=== PATIENT | female | born 1980 | race Hispanic/Latino ===

== ENCOUNTER 2018-11-06 04:23 | Emergency (ER) | payer SELFPAY ==
[2018-11-06] MEDS ORDERED: TYLENOL PO ONE (06:18)
[2018-11-06] MEDS ORDERED: NORMODYNE IV ONE (06:18)
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
[2018-11-06 07:37] VITALS: BP 160/93
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
[2018-11-06] MEDS ORDERED: TORADOL IV ONE (07:47)
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
== END 2018-11-06 08:47 | disposition left against medical advice (07) ==
LOC: EDBD → ED 04:23
DX: S12.101A Unspecified nondisplaced fracture of second cervical vertebra, initial encounter for closed fracture (principal); R51 Headache; I10 Essential (primary) hypertension; F17.200 Nicotine dependence, unspecified, uncomplicated; Y04.0XXA Assault by unarmed brawl or fight, initial encounter; Y93.89 Activity, other specified; Y92.89 Other specified places as the place of occurrence of the external cause; Y99.8 Other external cause status
CPT/HCPCS: 36415; 70450; 72125; 84703; 96374; 96375; 99284; J1885